=== PATIENT | male | born 1975 | race Two or more races ===

== ENCOUNTER 2024-06-25 10:26 | Inpatient (IN) | payer OTHER ==
[~2024-06-25] VITALS: Ht 172.7 cm; Wt 86.2 kg
[2024-06-25 11:19] LABS: BASOPHILS # (AUTO) 0.1 K/UL (0.0-0.2); BASOPHILS % (AUTO) 0.5 % (0.0-2.0); EOSINOPHILS # (AUTO) 0.1 K/uL (0.0-0.7); EOSINOPHILS % (AUTO) 1.1 % (0.0-7.0); HEMOGLOBIN 14.4 g/dL (12.5-16.3); LYMPHOCYTES # (AUTO) 1.7 K/uL (0.8-4.8); LYMPHOCYTES % (AUTO) 17.3 % (20.5-51.5); MEAN CORPUSCULAR HEMOGLOBIN 29.2 uug (23.8-33.4); MEAN CORPUSCULAR HGB CONC 34 g/dL (32.5-36.3); MEAN CORPUSCULAR VOLUME 87.2 fL (73.0-96.2); MONOCYTES # (AUTO) 0.8 K/uL (0.1-1.30); MONOCYTES % (AUTO) 8.4 % (0.0-11.0); NEUTROPHILS # (AUTO) 7.1 K/uL (1.8-8.9); NEUTROPHILS % (AUTO) 72.7 % (38.5-71.5); PLATELET COUNT (AUTO) 319 K/uL (152-348); RED BLOOD CELL COUNT(AUTO) 4.93 MIL/uL (4.06-5.63); RED CELL DISTRIBUTION WIDTH 13.9 % (12.1-16.2); WHITE BLOOD COUNT (AUTO) 9.8 K/uL (3.6-10.2)
[2024-06-25 11:27] LABS: CALCIUM 9.5 mg/dL (8.5-10.1); POTASSIUM 4.4 mmol/L (3.5-5.1)
[2024-06-25 11:28] LABS: DIFFERENTIAL COMMENT 1
[2024-06-25 11:33] LABS: BILIRUBIN,DIRECT 0.3 mg/dL (0.0-0.2); BILIRUBIN,TOTAL 1.1 mg/dL (0.2-1.0); TOTAL PROTEIN, SERUM 7.5 g/dL (6.4-8.2)
[2024-06-25] MEDS ORDERED: ETOMIDATE 20 MG/10 ML VIAL ONE (11:59)
[2024-06-25] MEDS ORDERED: FENTANYL CITRATE 100 MCG/2 ML AMPUL ONE (11:59)
[2024-06-25] MEDS: FENTANYL CITRATE 100 MCG/2 ML AMPUL IV ONE (12:13)
[2024-06-25] MEDS: ETOMIDATE 20 MG/10 ML VIAL IV ONE (12:14)
[2024-06-25] MEDS ORDERED: FLAS1EAC2 TP (12:59)
[2024-06-25] MEDS ORDERED: FLAS1KIT2 TP (12:59)
[2024-06-25] MEDS ORDERED: HYDROMORPHONE 1 MG/1 ML DISP.SYRIN ONE (13:52)
[2024-06-25] MEDS ORDERED: ONDANSETRON 4 MG/2 ML VIAL ONE (13:52)
[2024-06-25] MEDS: HYDROMORPHONE 1 MG/1 ML DISP.SYRIN IV ONE (13:58)
[2024-06-25] MEDS: ONDANSETRON 4 MG/2 ML VIAL IV ONE (13:58)
[2024-06-25] MEDS ORDERED: BUPR-53 PO (14:55)
[2024-06-25] MEDS ORDERED: FLUO20CA42 PO (14:55)
[2024-06-25] MEDS ORDERED: AMPH10CA3 PO (15:15)
[2024-06-25 16:00] VITALS: BP 117/74; TEMP 98; O2SAT 98
[2024-06-25] MEDS ORDERED: ONDANSETRON 4 MG/2 ML VIAL IV PRN (16:00)
[2024-06-25] MEDS ORDERED: REMEDY ESSENTIAL ZINC PASTE 113 GM TP PRN (16:00)
[2024-06-25] MEDS ORDERED: MAGNESIUM HYDROXIDE 30 ML LIQUID UDC PO PRN (16:00)
[2024-06-25] MEDS: HYDROCODONE/APAP 5-325MG TABLET PO PRN (16:27)
[2024-06-25] MEDS: HYDROCODONE/APAP 10-325 MG TABLET PO PRN (18:44)
[2024-06-25] MEDS ORDERED: HYDROCODONE/APAP 10-325 MG TABLET PO PRN (18:45)
[2024-06-25 20:15] VITALS: BP 104/65; TEMP 98.4; O2SAT 98
[2024-06-26] VITALS (7 sets, daily range): BP systolic 102–113; BP diastolic 71–98; TEMP 97.6–98.5; O2SAT 96–99
[2024-06-26] MEDS ORDERED: VANCOMYCIN 1000 MG VIAL ONE (07:04)
[2024-06-26 07:07] LABS: BASOPHILS % (AUTO) 0.6 % (0.0-2.0); EOSINOPHILS # (AUTO) 0.4 K/uL (0.0-0.7); EOSINOPHILS % (AUTO) 4.9 % (0.0-7.0); HEMATOCRIT 39.8 % (36.7-47.1); HEMOGLOBIN 13.9 g/dL (12.5-16.3); LYMPHOCYTES # (AUTO) 2.1 K/uL (0.8-4.8); LYMPHOCYTES % (AUTO) 27.9 % (20.5-51.5); MEAN CORPUSCULAR HEMOGLOBIN 30.6 uug (23.8-33.4); MEAN CORPUSCULAR HGB CONC 35 g/dL (32.5-36.3); MEAN CORPUSCULAR VOLUME 87.6 fL (73.0-96.2); MONOCYTES # (AUTO) 0.8 K/uL (0.1-1.30); MONOCYTES % (AUTO) 10.2 % (0.0-11.0); NEUTROPHILS # (AUTO) 4.3 K/uL (1.8-8.9); NEUTROPHILS % (AUTO) 56.4 % (38.5-71.5); PLATELET COUNT (AUTO) 252 K/uL (152-348); RED BLOOD CELL COUNT(AUTO) 4.54 MIL/uL (4.06-5.63); RED CELL DISTRIBUTION WIDTH 13.5 % (12.1-16.2); WHITE BLOOD COUNT (AUTO) 7.7 K/uL (3.6-10.2)
[2024-06-26 07:11] LABS: DIFFERENTIAL COMMENT 1
[2024-06-26 07:19] LABS: CALCIUM 8.1 mg/dL (8.5-10.1); CREATININE 1.1 mg/dL (0.6-1.3); MAGNESIUM 2.1 mg/dL (1.8-2.4); PHOSPHOROUS 3.9 mg/dL (2.5-4.9); POTASSIUM 3.5 mmol/L (3.5-5.1)
[2024-06-26] MEDS ORDERED: BUPIVACAINE PF 0.5% 30 ML VIAL ONE (07:19)
[2024-06-26] MEDS ORDERED: FAMOTIDINE. 20 MG/2 ML VIAL IV ONE (07:19)
[2024-06-26] MEDS ORDERED: FENTANYL CITRATE 100 MCG/2 ML AMPUL ONE (07:19)
[2024-06-26] MEDS ORDERED: ACETAMINOPHEN 500 MG TABLET PO ONE (08:00)
[2024-06-26] MEDS ORDERED: PROPOFOL 200 MG/20 ML BOTTLE ONE (08:00)
[2024-06-26 08:36] LABS: THYROID STIMULATING HORMONE 4.71 mIU/mL (0.358-3.740)
[2024-06-26] MEDS: buPROPion XL 150 MG TAB.SR.24H PO SCH (09:00)
[2024-06-26] MEDS ORDERED: IV D5W-0.45% NS +20 KCL 1,000 ML IV ONE (09:55)
[2024-06-26] MEDS ORDERED: ONDANSETRON 4 MG/2 ML VIAL IV PRN (10:00)
[2024-06-26] MEDS: HYDROMORPHONE 1 MG/1 ML DISP.SYRIN IV PRN (10:09)
[2024-06-26] MEDS ORDERED: MORPHINE SULFATE 4 MG/1 ML DISP.SYRIN IV PRN (10:30)
[2024-06-26] MEDS ORDERED: HYDROCODONE/APAP 10-325 MG TABLET PO PRN (10:30)
[2024-06-26] MEDS: POTASSIUM CHLORIDE 20 MEQ in IV D5 1/2 NS 1000 ML 1,000 ML IV PRN (11:37)
[2024-06-26] MEDS: CEFAZOLIN 1 G in IV DEXTROSE 5% 50 ML IV SCH (16:48)
[2024-06-26] MEDS: ACETAMINOPHEN 325 MG TABLET PO PRN (20:11)
[2024-06-27 01:23] VITALS: O2SAT 97
[2024-06-27 06:49] VITALS: BP 116/78; TEMP 98.3; O2SAT 98
[2024-06-27] MEDS ORDERED: ACET325C7 PO (08:28)
[2024-06-27] MEDS ORDERED: IBUP-1955 PO (08:28)
[2024-06-27] MEDS ORDERED: HYDR-3972 PO (08:28)
[2024-06-27 14:30] VITALS: TEMP 97.9
== END 2024-06-27 15:30 | disposition home or self-care (01) | DRG 511 ==
LOC: ER 10:32 → MEDSURG3 14:37
PROC: 0PSJ04Z Reposition Left Radius with Internal Fixation Device, Open Approach (ICD-10-PCS; principal; 2024-06-25)
PROC: 0PSJXZZ Reposition Left Radius, External Approach (ICD-10-PCS; 2024-06-25)
DX: S52.572A Other intraarticular fracture of lower end of left radius, initial encounter for closed fracture (principal); S22.31XA Fracture of one rib, right side, initial encounter for closed fracture; S52.612A Displaced fracture of left ulna styloid process, initial encounter for closed fracture; W17.89XA Other fall from one level to another, initial encounter; F32.A Depression, unspecified; E66.9 Obesity, unspecified; Z68.28 Body mass index [BMI] 28.0-28.9, adult; W18.30XA Fall on same level, unspecified, initial encounter; Z88.0 Allergy status to penicillin; R74.01 Elevation of levels of liver transaminase levels; F90.9 Attention-deficit hyperactivity disorder, unspecified type
CPT/HCPCS: 36415; 71101; 73110; 83735; 84100; 84443; 85025; 94760; G0378; J0690; J1100; J1171; J1308; J1885; J2405; J3010; J3370; J3480; J3490